=== PATIENT | female | born 1985 | race Caucasian/White ===

== ENCOUNTER 2024-05-30 06:17 | Day surgery (SDC) | payer OTHER ==
[~2024-05-30] VITALS: Ht 154.9 cm; Wt 85.0 kg
[2024-05-30] MEDS: SODIUM BICARBONATE 8.4% INJ 50MEQ 50ML VIAL XX ONE (06:00)
[~2024-05-30 06:17] MED LIST: BUPR150T12 PO; FLUO-365 PO; IRON65TA2 PO
[2024-05-30] MEDS: LIDOCAINE W/EPINEPHRINE 1% 20ML VIAL XX ONE (07:32)
[2024-05-30] MEDS: BACITRACIN OINTMENT 30GM TUBE As Ordered ONE (08:24)
[2024-05-30 08:30] VITALS: BP 141/82; TEMP 97.9; O2SAT 100
== END 2024-05-30 08:44 | disposition home or self-care (01) ==
LOC: M SDC 06:17
PROVIDERS: ATTEND Orthopaedic Surgery Hand Surgery
DX: M65.4 Radial styloid tenosynovitis [de Quervain] (principal)